=== PATIENT | female | born 1950 | race Caucasian/White ===

== ENCOUNTER → 2017-09-01 | Outpatient (CLI) | payer MEDICARE, OTHER ==
--- NOTE | 2017-09-01 09:53 | REPMRS ---
Patient History The patient states she had a clinical breast exam in 08/2017. Family history of breast cancer in sister at age 58 and breast cancer in paternal aunt at age 50 or over. Taking unspecified hormones for 7 years. Digital Woman Screen Mammo: September 01, 2017 - Exam #: [id number] Bilateral CC and MLO view(s) were taken. Technologist: Luz Earl, Technologist Prior study comparison: August 31, 2016, digital woman screen mammo performed at [facility]. August 29, 2015, digital woman screen mammo performed at [facility]. August 28, 2014, digital woman screen mammo performed at [facility]. FINDINGS: There are scattered fibroglandular densities. There has been no change in the appearance of the mammogram from the prior studies. There is a mild amount of scattered fibroglandular density which is fairly symmetric. There is no interval development of dominant mass, architectural distortion, or clustered microcalcification suggestive of malignancy. ASSESSMENT: BI-RADS/ACR category 1 mammogram. Negative. Recommendation Routine screening mammogram in 1 year (for women over age 40). This mammogram was interpreted with the aid of an FDA-approved computer-aided dectection system. Electronically Signed By: Berto Becker MD 09/01/17 0953
== END ==
LOC: M WHC 08:20
PROVIDERS: ATTEND Nurse Practitioner Family
DX: Z01.419 Encounter for gynecological examination (general) (routine) without abnormal findings (principal); Z12.31 Encounter for screening mammogram for malignant neoplasm of breast; Z12.12 Encounter for screening for malignant neoplasm of rectum; Z80.3 Family history of malignant neoplasm of breast; Z92.29 Personal history of other drug therapy
CPT/HCPCS: 82270; G0101; G0202

== ENCOUNTER → 2019-01-30 | Outpatient (CLI) | payer MEDICARE, OTHER ==
--- NOTE | 2019-01-30 12:19 | REPMRS ---
Patient History The patient states she had a clinical breast exam in 01/2019. Family history of breast cancer at age 50 or over in paternal aunt, breast cancer at age 58 in sister. Took unspecified hormones for 7 years. Digital Woman Screen Mammo: January 30, 2019 - Exam #: [id number] Bilateral CC and MLO view(s) were taken. Technologist: Dinora Bangura, Technologist Prior study comparison: September 01, 2017, digital woman screen mammo performed at [facility]. August 31, 2016, digital woman screen mammo performed at [facility]. FINDINGS: There are scattered fibroglandular densities. There has been no change in the appearance of the mammogram from the prior studies. There is a mild amount of scattered fibroglandular density which is fairly symmetric. There is no interval development of dominant mass, architectural distortion, or clustered microcalcification suggestive of malignancy. 3-D tomosynthesis shows no additional findings. Assessment: BI-RADS/ACR category 1 mammogram. Negative Mammogram. Recommendation Routine screening mammogram of both breasts in 1 year (for women over age 40). This patient's Lifetime Breast Cancer RIsk is estimated at 11.4 %. This mammogram was interpreted with the aid of an FDA-approved computer-aided dectection system. Electronically Signed By: Berto Becker MD 01/30/19 [id number]
--- NOTE | 2019-02-02 14:59 | DEXA ---
AP SPINE L1 - L4 1.015 -1.4 0.2 LT FEMUR TOTAL 0.729 -2.2 -0.9 LT NECK 0.764 -2.0 -0.4 RT FEMUR TOTAL 0.688 -2.5 -1.3 RT NECK 0.746 -2.1 -0.6 TOTAL BODY TOTAL OTHER COMMENTS: There is low bone density of the spine and hips. The density of the spine has decreased 8.1% since the initial exam on 05/22/2003. The spine density has increased 0.9% since the most recent exam on 08/28/2014. The density of the left hip has decreased 14.7% since the initial exam on 05/22/2003. The density of the left hip has decreased 3.6% since the most recent exam on 08/28/2014. The density of the right hip has decreased 15.2% since the initial exam on 05/22/2003. The density of the right hip has decreased 3.1% since the most recent exam on 08/28/2014. FOLLOW-UP: Recommendation for the next bone density exam: 2 years. CALOS
== END ==
LOC: M WHC 09:16
PROVIDERS: ATTEND Nurse Practitioner Family
DX: Z01.419 Encounter for gynecological examination (general) (routine) without abnormal findings (principal); Z12.31 Encounter for screening mammogram for malignant neoplasm of breast; M85.80 Other specified disorders of bone density and structure, unspecified site; Z80.3 Family history of malignant neoplasm of breast; Z92.29 Personal history of other drug therapy; Z12.12 Encounter for screening for malignant neoplasm of rectum
CPT/HCPCS: 77063; 77067; 77080; 82270; G0101

== ENCOUNTER → 2019-06-12 | Outpatient (REF) | payer MEDICARE, OTHER | LOC: M SFHCPLAZ 19:55 | PROVIDERS: ATTEND Dermatology | DX: D23.72 Other benign neoplasm of skin of left lower limb, including hip (principal) ==

== ENCOUNTER → 2020-04-10 | Outpatient (CLI) | payer MEDICARE, OTHER ==
--- NOTE | 2020-04-10 13:40 | REPMRS ---
Patient History The patient states she had a clinical breast exam in March 2020. Family history of breast cancer at age 50 or over in paternal aunt, breast cancer at age 58 in sister. Took unspecified hormones for 7 years. Digital Woman Screen Mammo: April 10, 2020 - Exam #: [id number] Bilateral CC and MLO view(s) were taken. Technologist: Opal Schultz, Technologist Prior study comparison: January 30, 2019, bilateral digital woman screen mammo performed at [facility]. September 01, 2017, digital woman screen mammo performed at [facility]. August 31, 2016, digital woman screen mammo performed at [facility]. FINDINGS: There are scattered fibroglandular densities. The Volpara volumetric breast density category is:B. There has been no change in the appearance of the mammogram from the prior studies. There is a mild amount of scattered fibroglandular density which is fairly symmetric. There is no interval development of dominant mass, architectural distortion, or grouped microcalcification suggestive of malignancy. 3-D tomosynthesis shows no additional findings. Assessment: BI-RADS/ACR category 1 mammogram. Negative Mammogram. Recommendation Routine screening mammogram of both breasts in 1 year (for women over age 40). This patient's Lifetime Breast Cancer Risk is estimated at 10.8 %. This mammogram was interpreted with the aid of an FDA-approved computer-aided dectection system. Electronically Signed By: Berto Becker MD 04/10/20 [id number]
== END ==
LOC: M WHC 11:04
PROVIDERS: ATTEND Nurse Practitioner Family
DX: Z12.31 Encounter for screening mammogram for malignant neoplasm of breast (principal); Z80.3 Family history of malignant neoplasm of breast; Z92.29 Personal history of other drug therapy
CPT/HCPCS: 77063; 77067; G0463

== ENCOUNTER → 2021-05-29 | Outpatient (CLI) | payer MEDICARE, OTHER ==
--- NOTE | 2021-05-29 10:08 | REPMRS ---
Patient History The patient states she has not had a clinical breast exam in over a year. Family history of breast cancer at age 50 or over in paternal aunt, breast cancer at age 58 in sister. Took unspecified hormones for 7 years. Tomosynthesis is performed. Volpara breast [facility] c[facility]%. Patient states no breast complaints today. Patient has signed MRS History Sheet. Digital Woman Screen Mammo: May 29, 2021 - Exam #: [id number] Bilateral CC and MLO view(s) were taken. Technologist: Gosia Cuba, Technologist Prior study comparison: April 10, 2020, bilateral digital woman screen mammo performed at [facility]. January 30, 2019, bilateral digital woman screen mammo performed at [facility]. FINDINGS: The breast tissue is heterogeneously dense. This may lower the sensitivity of mammography. There has been no change in the appearance of the mammogram from the prior studies. There is a moderate amount of residual fibroglandular tissue which is fairly symmetric. There is no interval development of dominant mass, areas of architectural distortion, or clustered microcalcification typical of malignancy. Assessment: BI-RADS/ACR category 1 mammogram. Negative Mammogram. Recommendation Routine screening mammogram in 1 year (for women over age 40). This mammogram was interpreted with the aid of an FDA-approved computer-aided dectection system. Electronically Signed By: Donte Alaniz MD 05/29/21 [id number]
--- NOTE | 2021-05-29 10:21 | DEXAMM ---
INDICATION: M85.80 LOW BONE DENSITY/Z78.0 POST MENOPAUSAL. COMPARISON: 01/30/2019 as well as other prior exams. TECHNIQUE: Bone density was measured using dual-energy x-ray absorptiometry (DEXA). FINDINGS: AP SPINE L1-L4 BMD 0.921 g/cm2 Young Adult T-Score -2.2 Age Matched Z-Score -0.6. LT FEMUR, TOTAL BMD 0.669 g/cm2 Young Adult T-Score -2.7 Age Matched Z-Score -1.3. LT NECK BMD 0.703 g/cm2 Young Adult T-Score -2.4 Age Matched Z-Score -0.8. RT FEMUR, TOTAL BMD 0.709 g/cm2 Young Adult T-Score -2.4 Age Matched Z-Score -1.0. RT NECK BMD 0.762 g/cm2 Young Adult T-Score -2.0 Age Matched Z-Score -0.4. IMPRESSION: There is low bone density of the spine. There is low bone density of the left hip. There is low bone density of the right hip. The density of the spine has decreased 16.7% since the initial exam on 05/22/2003. The density of the spine decreased 9.3% since most recent exam on 01/30/2019. The density of the left hip has decreased 21.8% since initial exam on 05/22/2003. The density of the left hip has decreased 8.2% since most recent exam on 01/30/2019. The density of the right hip has decreased 12.6% since the initial exam on 05/22/2003. The density of the right hip has increased 3.1% since the most recent exam on 01/30/2019. FOLLOW-UP: Recommendation for the next bone density exam: 2 years. <Electronically signed by Donte Alaniz > 05/29/21 [id number]
== END ==
LOC: M WHC 08:41
PROVIDERS: ATTEND Nurse Practitioner Women's Health
DX: Z12.31 Encounter for screening mammogram for malignant neoplasm of breast (principal); Z80.3 Family history of malignant neoplasm of breast; Z78.0 Asymptomatic menopausal state; Z92.29 Personal history of other drug therapy; M85.88 Other specified disorders of bone density and structure, other site; M85.851 Other specified disorders of bone density and structure, right thigh; M85.852 Other specified disorders of bone density and structure, left thigh
CPT/HCPCS: 77063; 77067; 77080; G0463

== ENCOUNTER → 2022-07-17 | Outpatient (CLI) | payer MEDICARE, OTHER | LOC: M WHC 10:47 | PROVIDERS: ATTEND Nurse Practitioner Family | DX: Z12.31 Encounter for screening mammogram for malignant neoplasm of breast (principal) ==

== ENCOUNTER → 2022-07-17 | Outpatient (REF) | payer MEDICARE, OTHER | LOC: M PLALAB 13:14 | PROVIDERS: ATTEND Nurse Practitioner Family | DX: Z12.4 Encounter for screening for malignant neoplasm of cervix (principal) ==

== ENCOUNTER → 2022-10-22 | Outpatient (REF) | payer MEDICARE, OTHER ==
[2022-10-22 14:45] LABS: APPEARANCE, URINE MANUAL CLEAR (CLEAR); COLOR, URINE MANUAL YELLOW (YELLOW)
[2022-10-22 14:46] LABS: BILIRUBIN, URINE MANUAL NEGATIVE (NEGATIVE); BLOOD URINE MANUAL NEGATIVE (NEGATIVE); GLUCOSE, URINE (UA) MANUAL NEGATIVE (NEGATIVE); KETONE, URINE MANUAL NEGATIVE (NEGATIVE); NITRITE, URINE MANUAL NEGATIVE (NEGATIVE); UROBILINOGEN, URINE MANUAL NORMAL (NORMAL)
[2022-10-22 14:47] LABS: LEUKOCYTE ESTERASE, URINE MAN NEGATIVE (NEGATIVE); PROTEIN, URINE MANUAL NEGATIVE (NEGATIVE)
== END ==
LOC: M SMT 13:00
PROVIDERS: ATTEND Physician Assistant
DX: N20.1 Calculus of ureter (principal)

== ENCOUNTER → 2022-10-29 | Outpatient (CLI) | payer MEDICARE, OTHER | LOC: M PLAIMG 10:11 | PROVIDERS: ATTEND Physician Assistant | DX: N20.0 Calculus of kidney (principal) ==

== ENCOUNTER → 2023-04-28 | Outpatient (CLI) | payer MEDICARE, OTHER | LOC: M PLAIMG 12:52 | PROVIDERS: ATTEND Physician Assistant | DX: N20.0 Calculus of kidney (principal) ==

== ENCOUNTER → 2023-07-19 | Outpatient (CLI) | payer MEDICARE, OTHER | LOC: M WHC 08:31 | PROVIDERS: ATTEND Nurse Practitioner Family | DX: Z12.31 Encounter for screening mammogram for malignant neoplasm of breast (principal) ==

== ENCOUNTER → 2024-07-21 | Outpatient (CLI) | payer MEDICARE, OTHER | LOC: M PLAIMG 10:55 | PROVIDERS: ATTEND Physician Assistant | DX: Z87.442 Personal history of urinary calculi (principal) ==

== ENCOUNTER → 2024-08-25 | Outpatient (CLI) | payer MEDICARE, OTHER | LOC: M WHC 15:27 | PROVIDERS: ATTEND Nurse Practitioner Family | DX: Z12.31 Encounter for screening mammogram for malignant neoplasm of breast (principal); Z13.820 Encounter for screening for osteoporosis; R92.323 Mammographic fibroglandular density, bilateral breasts; M81.0 Age-related osteoporosis without current pathological fracture ==

== ENCOUNTER → 2025-08-13 | Outpatient (CLI) | payer MEDICARE, OTHER | LOC: M PLAIMG 10:25 | PROVIDERS: ATTEND Physician Assistant | DX: Z87.442 Personal history of urinary calculi (principal) ==

== ENCOUNTER → 2025-08-30 | Outpatient (CLI) | payer MEDICARE, OTHER | LOC: M WHC 13:46 | PROVIDERS: ATTEND Advanced Practice Midwife | DX: Z12.31 Encounter for screening mammogram for malignant neoplasm of breast (principal); Z13.820 Encounter for screening for osteoporosis; M81.0 Age-related osteoporosis without current pathological fracture; R92.323 Mammographic fibroglandular density, bilateral breasts ==